=== PATIENT | male | born 1945 | race Caucasian/White ===

== ENCOUNTER 2019-07-30 09:07 | Emergency (ER) | payer MEDICARE, OTHER, SELFPAY ==
--- NOTE | 2019-07-30 09:16 | ED.ALLEREA ---
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 He is requesting injectable Solu-Medrol Related Data Home Medications Medication Instructions Recorded Confirmed aspirin [Adult Low Dose Aspirin] 81 mg PO DAILY 07/30/19 07/30/19 carbidopa-levodopa 1 tablet PO BID 07/30/19 07/30/19 cholecalciferol (vitamin D3) 50 mcg PO DAILY 07/30/19 07/30/19 clonazepam 0.5 mg PO HS 07/30/19 07/30/19 dextran 70-hypromellose (PF) 1 drp OPHTHALMIC (EYE) HS 07/30/19 07/30/19 [Artificial Tears (PF)] epinephrine 0.3 mg IM DIRECTED 07/30/19 07/30/19 gabapentin 300 mg PO DAILY 07/30/19 07/30/19 levothyroxine 125 mcg PO DAILY 07/30/19 07/30/19 lisinopril 20 mg PO DAILY 07/30/19 07/30/19 melatonin 3 mg PO HS 07/30/19 07/30/19 omeprazole 20 mg PO DAILY 07/30/19 07/30/19 pravastatin 10 mg PO DAILY 07/30/19 07/30/19 trospium 20 mg PO BID 07/30/19 07/30/19 Allergies Allergy/AdvReac Type Severity Reaction Status Date / Time No Known Allergies Allergy Unverified 03/06/18 14:18 Review of Systems Review of Systems: Narrative: CONSTITUTIONAL: Denies fever, chills, sweats. EYES: Denies visual changes, redness, discharge. ENT: Denies rhinorrhea, congestion, sore throat, otalgia. CARDIOVASCULAR: Denies chest pain, palpitations, edema. RESPIRATORY: Denies dyspnea, wheezing, cough GASTROINTESTINAL: Denies abdominal pain, nausea, vomiting, diarrhea. GENITOURINARY: Denies dysuria, hematuria, abnormal discharge SKIN: Denies rash or itching. Right forearm swelling, swelling at the base of neck NEUROLOGIC: Denies numbness, or focal weakness. PSYCHIATRIC: Denies anxiety or depression. PMFSH Family History Family History (Updated 07/30/19 @ 09:32 by Bhargavi Salazar CNP) Other Hypertension Social History Social History (Updated 07/30/19 @ 09:32 by Bhargavi Salazar CNP) Smoking status: Never smoker Alcohol intake: current Comments At time of signature, I agree with nursing past medical, surgical, social and family history. There is no relevant family history pertinent to the presenting complaint. Exam Narrative: Exam Narrative: GENERAL: This is a well-nourished, well-developed patient, in mild distress. HEAD: normocephalic, atraumatic. EYES: Sclera clear/white. Vision is grossly intact. EARS: External ears normal. Hearing grossly intact. NOSE: External nose normal without nasal discharge, nares without redness, no rhinorrhea. THROAT: Mucous membranes moist, no airway swelling NECK: Neck supple, CARDIOVASCULAR: Regular rate and rhythm without murmurs, gallops, or rubs. RESPIRATORY: Clear to auscultation. Breath sounds equal bilaterally. No wheezes, rales, or rhonchi. GASTROINTESTINAL: Abdomen soft, non-tender, SKIN: warm, intact, right forearm swelling on lateral side currently 10 x 8 area, ping-pong size of swelling back of neck NEURO: awake, alert, and oriented to person, place and time. There were no obvious focal neurologic abnormalities. Steady gait EXTREMITIES: Normal range of motion. BACK: Nontender without deformity Course Course Emergency Course: Given Solu-Medrol and Benadryl and pepcid Monitor respiratory status for 20 minutes after medication Follow-up with PCP Vital Signs Vital signs: Vital Signs Temperature 98.0 F 07/30/19 09:18 Pulse Rate 77 07/30/19 09:18 Respiratory Rate 20 07/30/19 09:18 Blood Pressure 115/66 07/30/19 09:18 Pulse Oximetry 100 07/30/19 09:18 Temperature 98.0 F 07/30/19 09:18 Pulse Rate 77 07/30/19 09:18 Respiratory Rate 20 07/30/19 09:
[2019-07-30 09:18] VITALS: BP 115/66; PULSE 77; RESP 20; TEMP 36.7; O2SAT 100
[2019-07-30] MEDS: FAMOTIDINE 20 MG TABLET PO (09:41)
[2019-07-30] MEDS: methylPREDNISolone SOD SUCC 125 MG VIAL IM (09:41)
== END 2019-07-30 10:02 | disposition home or self-care (01) ==
PROVIDERS: Emergency Provider Nurse Practitioner; PCP Internal Medicine
DX: T78.40XA Allergy, unspecified, initial encounter (principal); G20 Parkinson's disease; I10 Essential (primary) hypertension; E11.9 Type 2 diabetes mellitus without complications
CPT/HCPCS: 96372; 99213; A9270; G0463; J2930

== ENCOUNTER 2019-08-15 13:52 | Emergency (ER) | payer MEDICARE, OTHER, SELFPAY ==
[2019-08-15 13:58] VITALS: BP 112/59; PULSE 76; RESP 18; TEMP 36.9; O2SAT 97
--- NOTE | 2019-08-15 14:04 | ED.EAR ---
HPI - Ear Problem General Chief complaint: Skin/Abscess/Foreign Body Stated complaint: left ear bite Time Seen by Provider: 08/15/19 14:04 Source: patient and RN notes reviewed History of Present Illness HPI Narrative: Patient is a 74-year-old male who presents the urgent care with complaints of left swollen earlobe. Patient states that the swelling is extending into the left neck. States that he has been hospitalized in the past for [place] gnat bites, recent hospitalization just 3 weeks ago. Patient states that yesterday he believes he got bit in the left ear. Patient states that since last night the earlobe has decreased approximately by half. Patient states he is also feels that his swelling in the left neck is also improved since last night. Patient states that he took a leftover blue pill left over from his hospital stay . Patient also reports of taking an [id number] antihistamine. Denies of any difficulty breathing or swallowing. Denies of any fever. No other acute complaints. No acute distress noted. Patient read the plan of care. Related Data Home Medications Medication Instructions Recorded Confirmed aspirin [Adult Low Dose Aspirin] 81 mg PO DAILY 07/30/19 08/15/19 carbidopa-levodopa 1 tablet PO BID 07/30/19 08/15/19 cholecalciferol (vitamin D3) 50 mcg PO DAILY 07/30/19 08/15/19 clonazepam 0.5 mg PO HS 07/30/19 08/15/19 dextran 70-hypromellose (PF) 1 drp OPHTHALMIC (EYE) HS 07/30/19 08/15/19 [Artificial Tears (PF)] epinephrine 0.3 mg IM DIRECTED 07/30/19 08/15/19 gabapentin 300 mg PO DAILY 07/30/19 08/15/19 levothyroxine 125 mcg PO DAILY 07/30/19 08/15/19 lisinopril 20 mg PO DAILY 07/30/19 08/15/19 melatonin 3 mg PO HS 07/30/19 08/15/19 omeprazole 20 mg PO DAILY 07/30/19 08/15/19 pravastatin 10 mg PO DAILY 07/30/19 08/15/19 trospium 20 mg PO BID 07/30/19 08/15/19 Allergies Allergy/AdvReac Type Severity Reaction Status Date / Time bee venom protein (honey bee) Allergy Swelling Verified 08/15/19 14:08 [bees] Review of Systems Review of Systems: Narrative: CONSTITUTIONAL: Denies fever, chills, or sweats. EYES: Denies visual changes, redness, or discharge. ENT: Denies rhinorrhea, congestion, sore throat, or otalgia. CARDIOVASCULAR: Denies chest pain, palpitations, or edema. RESPIRATORY: Denies cough or dyspnea. GASTROINTESTINAL: Denies abdominal pain, nausea, vomiting, or diarrhea. GENITOURINARY: Denies dysuria or hematuria. SKIN: Reports of redness and swelling to the left earlobe MUSCULOSKELETAL: Denies back pain, joint pain, or myalgia. NEUROLOGIC: Denies headache, numbness, or weakness. All other systems reviewed are negative, except as documented in HPI. PMFSH Family History Family History (Updated 07/30/19 @ 09:32 by Bhargavi Salazar CNP) Other Hypertension Social History Social History (Updated 07/30/19 @ 09:32 by Bhargavi Salazar CNP) Smoking status: Never smoker Alcohol intake: current Comments At the time of my signature, I reviewed and agree with the nursing past medical, surgical, social, and family history. There is no relevant family history pertinent to the patient complaint. Exam Narrative: Exam Narrative: GENERAL: This is a well-nourished, well-developed patient, in no apparent distress. HEAD: normocephalic, atraumatic. EYES: PERRL. Sclera clear/white. Vision is grossly intact. EARS: External ears normal, mild to moderate edema noted to the left earlobe with yellow oozing drainage NOSE: External nose normal with no obvious nasal discharge, nares without redness, no rhinorrhea. THROAT: Mucous membranes moist, posterior pharynx clear. NECK: Neck supple, non-tender. Mild to moderate erythema noted to the left SKIN: warm, intact with no suspicious lesions or rash, good texture and turgor. NEURO: awake, alert, and oriented to person, place and time. There were no obvious focal neurologic abnormalities. EXTREMITIES: No clubbing, cyanosis, or edema. Course Sandy
[2019-08-15] MEDS: predniSONE 20 MG TABLET 60 MG PO (14:30)
--- NOTE | 2019-08-15 14:34 | PC.NURSE ---
PT WAS GIVEN A TOTAL OF 60 MG OF PREDNISONE.
== END 2019-08-15 14:38 | disposition home or self-care (01) ==
PROVIDERS: Emergency Provider Nurse Practitioner Family
DX: H60.12 Cellulitis of left external ear (principal); Z79.82 Long term (current) use of aspirin; G20 Parkinson's disease; E78.00 Pure hypercholesterolemia, unspecified; I10 Essential (primary) hypertension; K21.9 Gastro-esophageal reflux disease without esophagitis; Z96.653 Presence of artificial knee joint, bilateral; M19.90 Unspecified osteoarthritis, unspecified site; Z98.1 Arthrodesis status; E11.9 Type 2 diabetes mellitus without complications; E03.9 Hypothyroidism, unspecified; Z85.46 Personal history of malignant neoplasm of prostate
CPT/HCPCS: 99213; G0463; J7512